=== PATIENT | female | born 1980 | race Caucasian/White ===

== ENCOUNTER 2016-11-20 12:45 | Emergency (ER) | payer SELFPAY ==
[~2016-11-20] VITALS: Ht 170.2 cm; Wt 89.0 kg
[~2016-11-20 12:45] MED LIST: ALPR1TAB2 PO
[2016-11-20 12:54] VITALS: Ht 170.2 cm; Wt 89.0 kg
== END 2016-11-20 14:50 | disposition left against medical advice (07) ==
LOC: FTE 12:45
DX: Z53.21 Procedure and treatment not carried out due to patient leaving prior to being seen by health care provider (principal)

== ENCOUNTER 2017-03-10 10:46 | Emergency (ER) | payer MEDICAID ==
[~2017-03-10] VITALS: Ht 172.7 cm; Wt 65.5 kg
[2017-03-10 10:48] VITALS: Ht 172.7 cm; Wt 65.5 kg
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
[2017-03-10] MEDS ORDERED: IBUP-1542 PO (14:11)
[2017-03-10] MEDS ORDERED: NEOM28OI TP (14:11)
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
== END 2017-03-10 14:25 | disposition home or self-care (01) ==
LOC: FTE 10:46
DX: S01.81XA Laceration without foreign body of other part of head, initial encounter (principal); F17.210 Nicotine dependence, cigarettes, uncomplicated; Y08.89XA Assault by other specified means, initial encounter
CPT/HCPCS: 29130; 70140; 72040; 73140; Z7502

== ENCOUNTER → 2017-11-08 | Emergency (ER) | END | disposition left against medical advice (07) ==

== ENCOUNTER 2018-03-23 18:59 | Emergency (ER) | END 2018-03-23 23:55 | disposition home or self-care (01) ==